=== PATIENT | male | born 1955 | race Caucasian/White ===

== ENCOUNTER 2018-08-03 15:10 | Emergency (ER) | payer MEDICARE ==
[~2018-08-03] VITALS: Ht 185.4 cm; Wt 95.0 kg
[2018-08-03] MEDS ORDERED: SODIUM CHLORIDE FLUSH 10ML SYR IVF ONE (15:30)
[2018-08-03] MEDS ORDERED: PROPOFOL 10 MG/ML, 20ML ONE (15:38)
[2018-08-03 15:44] LABS: ALBUMIN 3.7 g/dL (3.4-5.0); ANION GAP 8 mmol/L (5-15); CALCIUM 8.8 mg/dL (8.5-10.1); CHLORIDE 112 mmol/L (98-107)
[2018-08-03 15:53] LABS: INTERNATIONAL NORMALIZED RATIO 2.79 (0.93-1.1)
[2018-08-03] MEDS ORDERED: PLEASE ENTER ALLERGIES MC SCH (16:00)
[2018-08-03] MEDS ORDERED: PROPOFOL 10 MG/ML, 20ML IVPush ONE (16:00)
[2018-08-03 16:17] LABS: PROTHROMBIN TIME 28.4 Seconds (9.6-11.5)
[2018-08-03 16:56] VITALS: BP 112/62
== END 2018-08-03 16:59 | disposition home or self-care (01) ==
LOC: ED 16:37
DX: I48.2 Chronic atrial fibrillation (principal); I48.92 Unspecified atrial flutter
CPT/HCPCS: 36415; 80048; 82040; 85610; 93005; 99285

== ENCOUNTER → 2018-08-03 | Outpatient (CLI) | payer MEDICARE | END | disposition home or self-care (01) | LOC: CFH 10:20 | PROVIDERS: ATTEND Internal Medicine Cardiovascular Disease | DX: I48.91 Unspecified atrial fibrillation (principal); I10 Essential (primary) hypertension | CPT/HCPCS: 78452; 93017; 93306; A9502 ==

== ENCOUNTER → 2020-11-13 | Outpatient (CLI) | payer BC, MEDICARE ==
[~2020-11-13] MED LIST: REGADENOSON 0.4 MG/5 ML SYRINGE ONE
== END | disposition home or self-care (01) ==
LOC: CFH 07:33
PROVIDERS: ATTEND Nurse Practitioner Family
DX: I48.91 Unspecified atrial fibrillation (principal)
CPT/HCPCS: 78452; 93017; A9502; J2785

== ENCOUNTER 2020-11-20 05:56 | Day surgery (SDC) | payer BC ==
[~2020-11-20] VITALS: Ht 185.4 cm; Wt 95.5 kg
[2020-11-20 06:30] VITALS: BP 116/69
[2020-11-20] MEDS ORDERED: DRON400T PO (06:34)
[2020-11-20] MEDS ORDERED: ATOR40TA PO (06:34)
[2020-11-20] MEDS ORDERED: APIX5TAB PO (06:34)
[2020-11-20 06:45] LABS: BASOPHILS % (AUTO) 1 % (0-1); EOSINOPHILS % (AUTO) 5 % (1-7); LYMPHOCYTES % (AUTO) 32 % (22-44); MEAN CORPUSCULAR HEMOGLOBIN 30.8 pg (27.5-34.5); MEAN PLATELET VOLUME 6.9 fL (7.4-10.4); MONOCYTES % (AUTO) 17 % (2-9); NEUTROPHILS % (AUTO) 45 % (42-75); PLATELET COUNT 194 x10^3/uL (130-400); RED BLOOD COUNT 4.71 x10^6/uL (4.38-5.82); RED CELL DISTRIBUTION WIDTH 12.4 % (9.4-14.8)
[2020-11-20 06:47] LABS: MD NO
[2020-11-20 06:57] LABS: ANION GAP 6 mmol/L (5-15); CALCIUM 8.9 mg/dL (8.5-10.1); CHLORIDE 113 mmol/L (98-107); CREATININE 0.78 mg/dL (0.7-1.3)
[2020-11-20] MEDS ORDERED: PROPOFOL 10 MG/ML, 20ML ONE (07:45)
[2020-11-20] MEDS ORDERED: DILT120C83 PO (08:27)
== END 2020-11-20 08:57 | disposition home or self-care (01) ==
LOC: CACL 05:56
PROVIDERS: ATTEND Internal Medicine Cardiovascular Disease
DX: I48.91 Unspecified atrial fibrillation (principal); E78.5 Hyperlipidemia, unspecified; I25.10 Atherosclerotic heart disease of native coronary artery without angina pectoris; F17.210 Nicotine dependence, cigarettes, uncomplicated; Z72.89 Other problems related to lifestyle; Z98.890 Other specified postprocedural states; Z79.01 Long term (current) use of anticoagulants; Z79.899 Other long term (current) drug therapy
CPT/HCPCS: 36415; 80048; 85025; 92960; 93005; J2704

== ENCOUNTER → 2020-11-25 | Outpatient (CLI) | payer BC ==
[~2020-11-25] MED LIST changes: +APIX5TAB PO; +ATOR40TA PO; +DILT120C83 PO; +DRON400T PO; +OMNIPAQUE 350 MG/ML, 150 ML BOTTLE ONE; -REGADENOSON 0.4 MG/5 ML SYRINGE ONE
== END | disposition home or self-care (01) ==
LOC: CFH 14:32
PROVIDERS: ATTEND Internal Medicine Cardiovascular Disease
DX: I25.10 Atherosclerotic heart disease of native coronary artery without angina pectoris (principal); I48.91 Unspecified atrial fibrillation
CPT/HCPCS: 71046; 75572; Q9967

== ENCOUNTER 2020-11-26 06:14 | Observation (INO) | payer BC ==
[~2020-11-26] VITALS: Ht 185.4 cm; Wt 100.4 kg
[~2020-11-26 06:14] MED LIST changes: -OMNIPAQUE 350 MG/ML, 150 ML BOTTLE ONE
[2020-11-26] MEDS ORDERED: SODIUM CHLORIDE 0.9% 1,000 ML IV SCH (07:00)
[2020-11-26 07:17] VITALS: BP 123/70
[2020-11-26] MEDS ORDERED: FENTANYL PF 250 MCG/5ML ONE (07:20)
[2020-11-26] MEDS ORDERED: PROPOFOL 50 ML ONE (07:20)
[2020-11-26] MEDS ORDERED: MIDAZOLAM 1 MG/ML, 2ML ONE (07:20)
[2020-11-26 07:55] LABS: INTERNATIONAL NORMALIZED RATIO 1.03 (0.93-1.1)
[2020-11-26] MEDS ORDERED: OXYcodone 5 MG/5 ML ORAL.SOL UDC PO PRN (08:00)
[2020-11-26] MEDS ORDERED: EPHEDRINE 50 MG/ML, 1ML IM PRN (08:00)
[2020-11-26] MEDS ORDERED: MEPERIDINE/PF 25MG/0.5ML IVPush PRN (08:00)
[2020-11-26] MEDS ORDERED: DIPHENHYDRAMINE 50 MG/ML, 1ML IVPush PRN (08:00)
[2020-11-26] MEDS ORDERED: ONDANSETRON 2MG/ML, 2ML IVPush PRN ×2 (08:00→13:00)
[2020-11-26] MEDS ORDERED: LABETALOL 5MG/ML, 20ML IV PRN (08:00)
[2020-11-26] MEDS ORDERED: EPHEDRINE 50 MG/ML, 1ML IVPush PRN (08:00)
[2020-11-26] MEDS ORDERED: HYDROmorphone 1 MG/ML, 1ML INJ IVPush PRN (08:00)
[2020-11-26] MEDS ORDERED: FENTANYL PF 100 MCG/2ML IV PRN (08:00)
[2020-11-26] MEDS ORDERED: PROMETHAZINE 25 MG/ML, 1ML IVPush PRN (08:00)
[2020-11-26] MEDS ORDERED: DIAZEPAM 5 MG/ML, 2ML IVPush PRN (08:00)
[2020-11-26] MEDS ORDERED: ROCURONIUM 10 MG/ML,10ML ONE (08:04)
[2020-11-26] MEDS ORDERED: DEXAMETHASONE 4 MG/ML, 1ML ONE (08:04)
[2020-11-26] MEDS ORDERED: ONDANSETRON 2MG/ML, 2ML ONE (08:04)
[2020-11-26] MEDS ORDERED: SUCCINYLCHOLINE 20 MG/ML, 10ML ONE (08:04)
[2020-11-26] MEDS ORDERED: LIDOCAINE 1%, 20ML ONE (08:15)
[2020-11-26] MEDS ORDERED: APIXABAN 5 MG TABLET ONE (08:15)
[2020-11-26] MEDS ORDERED: ISOPROTERENOL 0.2MG/ML, 5ML ONE (09:12)
[2020-11-26] MEDS ORDERED: HEPARIN 1,000 UNITS/ML, 10ML ONE ×2 (10:35)
[2020-11-26] MEDS ORDERED: ACETAMINOPHEN 325 MG TABLET PO PRN (13:00)
[2020-11-26 14:53] VITALS: BP 115/65
[2020-11-26] MEDS: APIXABAN 5 MG TABLET PO SCH ×2 (15:15→20:10)
[2020-11-26 16:16] VITALS: BP 107/67
[2020-11-26 19:12] VITALS: BP 115/65
[2020-11-26] MEDS: COLCHICINE 0.6 MG CAPSULE PO SCH (20:10)
[2020-11-26] MEDS ORDERED: APIXABAN 5 MG TABLET PO SCH (21:00)
[2020-11-26] MEDS ORDERED: ATORVASTATIN 40 MG TABLET PO SCH (21:00)
[2020-11-26] MEDS ORDERED: ZOLPIDEM 5MG TABLET PO PRN (21:00)
[2020-11-27 01:20] VITALS: BP 113/63
[2020-11-27 07:05] VITALS: BP 115/66
[2020-11-27] MEDS ORDERED: DILTIAZEM 120 MG CAP.ER.24H PO SCH (09:00)
[2020-11-27] MEDS ORDERED: COLC0.6C3 PO (09:10)
[2020-11-27] MEDS ORDERED: ACET325T26 PO (09:10)
[2020-11-27] MEDS ORDERED: FLEC50TA25 PO (09:12)
[2020-11-27 09:33] VITALS: BP 121/70
[2020-11-27] MEDS: APIXABAN 5 MG TABLET PO SCH (09:35)
[2020-11-27] MEDS: COLCHICINE 0.6 MG CAPSULE PO SCH (09:35)
== END 2020-11-27 10:30 | disposition home or self-care (01) ==
LOC: CACL 06:14 → 5SO 13:59 → CACL 23:22 → 5SO 23:23 → DCLOUNGE 11-27 10:27
PROVIDERS: ADMIT Internal Medicine Cardiovascular Disease; ATTEND Internal Medicine Cardiovascular Disease
DX: I48.91 Unspecified atrial fibrillation (principal); Z20.822 Contact with and (suspected) exposure to COVID-19; I48.3 Typical atrial flutter; I48.4 Atypical atrial flutter; Z79.01 Long term (current) use of anticoagulants; Z79.899 Other long term (current) drug therapy
CPT/HCPCS: 36415; 85347; 85610; 87635; 93306; 93312; 93321; 93325; 93655; 93656; 93657; 93662; C1730; C1732; C1759; C1766; C1893; C1894; G0378; J0330; J1100; J1644; J2250; J2405; J2704; J3010; J3490

== ENCOUNTER → 2021-06-21 | Outpatient (CLI) | payer BC ==
[~2021-06-21] MED LIST changes: +ACET325T26 PO; +COLC0.6C3 PO; +DIGO125T85 PO; -DRON400T PO; +DRON400T6 PO; +FLEC50TA25 PO
== END | disposition home or self-care (01) ==
LOC: COVVAC 14:42
PROVIDERS: ATTEND Internal Medicine
DX: Z20.822 Contact with and (suspected) exposure to COVID-19 (principal)
CPT/HCPCS: U0003; U0005

== ENCOUNTER 2021-06-23 06:04 | Observation (INO) | payer BC ==
[~2021-06-23] VITALS: Ht 185.4 cm; Wt 106.5 kg
[~2021-06-23 06:04] MED LIST changes: -DIGO125T85 PO
[2021-06-23] MEDS ORDERED: DIGO125T85 PO (06:48)
[2021-06-23 06:52] VITALS: BP 125/71
[2021-06-23] MEDS ORDERED: SODIUM CHLORIDE 0.9% 1,000 ML IV SCH (07:00)
[2021-06-23 07:36] LABS: BASOPHILS % (AUTO) 2 % (0-1); EOSINOPHILS % (AUTO) 6 % (1-7); LYMPHOCYTES % (AUTO) 40 % (22-44); MEAN CORPUSCULAR HEMOGLOBIN 31.9 pg (27.5-34.5); MEAN CORPUSCULAR HGB CONC 33.8 g/dL (33.2-36.2); MEAN PLATELET VOLUME 6.9 fL (7.4-10.4); MONOCYTES % (AUTO) 13 % (2-9); NEUTROPHILS % (AUTO) 40 % (42-75); PLATELET COUNT 187 x10^3/uL (130-400); RED BLOOD COUNT 4.46 x10^6/uL (4.38-5.82); RED CELL DISTRIBUTION WIDTH 13.1 % (9.4-14.8)
[2021-06-23 07:46] LABS: INTERNATIONAL NORMALIZED RATIO 1.04 (0.93-1.1); PROTHROMBIN TIME 11.1 Seconds (9.6-11.5)
[2021-06-23 07:48] LABS: ANION GAP 4 mmol/L (5-15); CALCIUM 8.3 mg/dL (8.5-10.1); CHLORIDE 112 mmol/L (98-107)
[2021-06-23 07:49] LABS: CREATININE 0.72 mg/dL (0.7-1.3)
[2021-06-23] MEDS ORDERED: FENTANYL PF 250 MCG/5ML ONE (08:12)
[2021-06-23] MEDS ORDERED: EPHEDRINE 50 MG/ML, 1ML IVPush PRN (09:00)
[2021-06-23] MEDS ORDERED: OXYcodone 5 MG/5 ML ORAL.SOL UDC PO PRN (09:00)
[2021-06-23] MEDS ORDERED: DIPHENHYDRAMINE 50 MG/ML, 1ML IVPush PRN (09:00)
[2021-06-23] MEDS ORDERED: PROMETHAZINE 25 MG/ML, 1ML IVPush PRN (09:00)
[2021-06-23] MEDS ORDERED: LABETALOL 5MG/ML, 20ML IV PRN (09:00)
[2021-06-23] MEDS ORDERED: ONDANSETRON 2MG/ML, 2ML IVPush PRN ×2 (09:00→10:30)
[2021-06-23] MEDS ORDERED: FENTANYL PF 100 MCG/2ML IV PRN (09:00)
[2021-06-23] MEDS ORDERED: MEPERIDINE/PF 25MG/0.5ML IVPush PRN (09:00)
[2021-06-23] MEDS ORDERED: EPHEDRINE 50 MG/ML, 1ML IM PRN (09:00)
[2021-06-23] MEDS ORDERED: morphine SULFATE 10 MG/ML, 1ML IVPush PRN (09:00)
[2021-06-23] MEDS ORDERED: DIAZEPAM 5 MG/ML, 2ML IVPush PRN (09:00)
[2021-06-23] MEDS ORDERED: ACETAMINOPHEN 325 MG TABLET PO PRN ×2 (09:00→10:30)
[2021-06-23] MEDS ORDERED: ROCURONIUM 10MG/ML,5ML ONE (09:31)
[2021-06-23] MEDS ORDERED: HEPARIN 1,000 UNITS/ML, 10ML ONE (09:31)
[2021-06-23] MEDS ORDERED: ONDANSETRON 2MG/ML, 2ML ONE (09:32)
[2021-06-23] MEDS ORDERED: ISOPROTERENOL 0.2MG/ML, 5ML ONE (09:40)
[2021-06-23] MEDS ORDERED: PROPOFOL 10 MG/ML, 20ML ONE (09:47)
[2021-06-23] MEDS ORDERED: LIDOCAINE 1%, 20ML ONE (10:00)
[2021-06-23] MEDS ORDERED: APIXABAN 5 MG TABLET ONE (10:28)
[2021-06-23] MEDS ORDERED: APIXABAN 5 MG TABLET PO SCH (10:30)
[2021-06-23] MEDS: APIXABAN 5 MG TABLET PO SCH ×2 (10:30→22:17)
[2021-06-23] MEDS ORDERED: ZOLPIDEM 5MG TABLET PO PRN (10:30)
[2021-06-23 14:19] VITALS: BP 106/69
[2021-06-23 19:51] VITALS: BP 123/70
[2021-06-23] MEDS ORDERED: ATORVASTATIN 40 MG TABLET PO SCH (21:00)
[2021-06-23] MEDS: FLECAINIDE 50MG TABLET PO SCH (22:18)
[2021-06-23] MEDS: COLCHICINE 0.6 MG CAPSULE PO SCH (22:18)
[2021-06-24 00:45] VITALS: BP 100/62
[2021-06-24 07:00] VITALS: BP 107/68
[2021-06-24] MEDS: COLCHICINE 0.6 MG CAPSULE PO SCH (08:13)
[2021-06-24] MEDS: FLECAINIDE 50MG TABLET PO SCH (08:13)
[2021-06-24] MEDS: APIXABAN 5 MG TABLET PO SCH (08:13)
[2021-06-24] MEDS ORDERED: DIGOXIN 0.25 MG TABLET PO SCH (09:00)
[2021-06-24] MEDS ORDERED: COLC0.6C3 PO (10:54)
[2021-06-24] MEDS ORDERED: ACET325T26 PO (10:54)
== END 2021-06-24 13:38 | disposition home or self-care (01) ==
LOC: CACL 06:04 → 5SO 10:12 → CACL 23:31
PROVIDERS: ADMIT Internal Medicine Cardiovascular Disease; ATTEND Internal Medicine Cardiovascular Disease
DX: I48.4 Atypical atrial flutter (principal); I48.91 Unspecified atrial fibrillation; D68.69 Other thrombophilia; E78.5 Hyperlipidemia, unspecified; I25.10 Atherosclerotic heart disease of native coronary artery without angina pectoris; Z79.01 Long term (current) use of anticoagulants; Z79.899 Other long term (current) drug therapy; Z87.891 Personal history of nicotine dependence
CPT/HCPCS: 36415; 71046; 80048; 85025; 85347; 85610; 85730; 93005; 93308; 93312; 93321; 93325; 93462; 93613; 93621; 93653; 93662; C1730; C1759; C1766; C1893; C1894; G0378; J1644; J2405; J2704; J3010; J3490